=== PATIENT | female | born 1985 | race Caucasian/White ===

== ENCOUNTER 2017-04-15 17:57 | Emergency (ER) | payer OTHER ==
[~2017-04-15] VITALS: Ht 152.4 cm; Wt 73.7 kg
[2017-04-15 18:05] VITALS: Ht 152.4 cm; Wt 73.7 kg
[2017-04-15] MEDS ORDERED: CLON0.5T3 PO (18:54)
[2017-04-15] MEDS ORDERED: TBROPO OPR (18:54)
[2017-04-15] MEDS ORDERED: LAMO25TA PO (18:54)
[2017-04-15] MEDS ORDERED: [UNRECOGNIZED DRUG - CODE] PO (18:54)
[2017-04-15] MEDS ORDERED: DPPI400 INJ (18:54)
--- NOTE | 2017-04-15 19:04 | EMERGENCY ROOM VISIT NOTE ---
History Report prepared by Priscila: Joy Krishnamurthy Under the Supervision of: Dr. Woodrow Tracy M.D. First contact with patient: 18:14 Chief Complaint: NEURO SYMPTOMS Stated Complaint: CANNOT WALK, FALL, TO SEE NEUROLOGIST History of Present Illness The patient is a 31 year old female who presents to the Emergency Room with complaints of persistent neuro symptoms that have been worsening over the past 3 weeks ago. The patient's mother reports that the patient has a history of Cerebral Palsy and Epilepsy. She states that the patient has had an unsteady gait for the past three weeks. The patient's mother states that she took the patient to a neurologist and had a change in her medication. She states that the patient additionally had an EEG three weeks ago. The patient's mother states that several days ago the patient fell and has not been able to ambulate without assistance or without a walker. She states that the patient was evaluated at [facility] Emergency department and only had x-rays of her legs to rule out fractures. The patient's mother states that the patient still cannot stand up on her feet and needs further evaluation. She states that the patient does not see her new neurologist until the beginning of April. Source of History: patient Onset: past three weeks Position: other (global) Quality: other (neuro symptoms) Timing: other (persistent) Note: Associated Symptoms: difficulty walking, unsteady gait Review of Systems See HPI for pertinent positives & negatives. A total of 10 systems reviewed and were otherwise negative. Past Medical & Surgical Medical Problems: (1) Cerebral palsy (2) Epilepsy Family History No pertinent family history stated. Social History Smoking Status: Never Smoker Marital Status: single Occupation Status: unemployed Current/Historical Medications Scheduled Clonazepam (Klonopin), 0.5 MG PO BID Clorazepate Dipotassium (Clorazepate Dipotassium), 0.5 TAB PO BID Lamotrigine (Lamictal), 25 MG PO QAM Medroxyprogesterone Acetate (Depo-Provera), 1 DOSE INJ Q3MO Tobramycin Sulf (Tobrex), 1 APPLN OPR BID Physical Exam Vital Signs Date Time Temp Pulse Resp B/P (MAP) Pulse Ox O2 Delivery O2 Flow Rate FiO2 04/15/17 21:09 112 19 120/69 96 Room Air 04/15/17 18:05 131 18 144/89 97 Room Air Physical Exam GENERAL: Patient is a healthy-appearing well-nourished female HEAD: Normocephalic atraumatic EYES: Ocular movements intact pupils equal and react to light OROPHARYNX mucous membranes are moist no exudates present no erythema or edema present NECK: Supple no nuchal rigidity CHEST: Good equal expansion LUNGS: Clear and equal to auscultation CARDIAC: Normal S1 and S2 ABDOMEN: Soft nontender no guarding BACK: No CVA tenderness EXTREMITIES: No pain upon palpation normal muscle strength in all groups no clubbing cyanosis or edema NEURO: Patient is following commands and answering questions appropriately. Alert and oriented x3 Cranial Nerves 2-12 grossly intact Medical Decision & Procedures ER Provider Diagnostic Interpretation: Radiology results as stated below per my review and radiologist interpretation: CT OF THE HEAD WITHOUT CONTRAST CLINICAL HISTORY: Weakness. Fall. COMPARISON STUDY: No previous studies for comparison. CT DOSE: 655.73 mGy.cm TECHNIQUE: Helical axial images of the head were obtained without IV contrast. Automated exposure control was utilized for the study. FINDINGS: No acute intracranial hemorrhage, midline shift or mass effect is present. Ventricular system is unremarkable. Basilar cisterns are patent. There are no extra-axial collections. Griggs-white differentiation is maintained. There are no findings to suggest acute dural sinus thrombosis or acute territorial infarct. There is mild cerebral and moderate cerebellar atrophy. There may be subtle subcortical white matter hypodensities. There is no calvarial fracture. Visualized portions of the sinuses and mastoid air cells are clear. IMPRESSION: 1. No acute intracranial findings. 2. Mild cerebral and moderate cerebellar atrophy. Suspected subtle white matter hypodensities which are likely chronic. Electronically signed by: Ajay Marie M.D. 04/15/2017 8:02 PM Dictated Date/Time: 04/15/2017 7:56 PM RIGHT TIBIA/FIBULA 2 VIEWS ROUTINE CLINICAL HISTORY: Ambulatory dysfunction. COMPARISON: None FINDINGS: No acute fracture of the right tibia or fibula is identified. There is mild posterior calcaneal spurring. There may be a right knee joint effusion. IMPRESSION: 1. No acute fracture of the right tibia or fibula. 2. Possible right knee joint effusion. Electronically signed by: Ajay Marie M.D. 04/15/2017 8:39 PM Dictated Date/Time: 04/15/2017 8:37 PM LEFT TIBIA/FIBULA 2 VIEWS ROUTINE CLINICAL HISTORY: Ambulatory dysfunction. COMPARISON: None FINDINGS: No acute fracture of the left tibia or fibula is identified. A calcification within the left calf is chronic. Talar dome is intact. There is minimal posterior calcaneal spurring. IMPRESSION: No acute fracture of the left tibia or fibula. Electronically signed by: Ajay Marie M.D. 04/15/2017 8:41 PM Dictated Date/Time: 04/15/2017 8:40 PM PELVIS 1 OR 2 VIEW ROUTINE CLINICAL HISTORY: Ambulatory dysfunction. COMPARISON STUDY: No previous studies for comparison. FINDINGS: The sacroiliac joints and symphysis pubis are intact. Alignment of the hips is anatomic. No acute fracture within the pelvis or hips is identified. IMPRESSION: No acute fracture within the pelvis or hips. Electronically signed by: Ajay Marie M.D. 04/15/2017 8:36 PM Dictated Date/Time: 04/15/2017 8:35 PM ADDENDUM Addendum: Note is made of a suspected moderate size right knee joint effusion, a nonspecific finding. Electronically signed by: Ajay Marie M.D. 04/15/2017 8:43 PM Dictated Date/Time: 04/15/2017 8:42 PM ORIGINAL REPORT RIGHT FEMUR 2 VIEWS ROUTINE CLINICAL HISTORY: Ambulatory dysfunction. COMPARISON: None FINDINGS: Alignment of the right hip and knee is anatomic. No acute fracture of the right femur is identified. No osseous lesion is identified. IMPRESSION: No acute fracture of the right femur. Electronically signed by: Ajay Marie M.D. 04/15/2017 8:37 PM Dictated Date/Time: 04/15/2017 8:36 PM LEFT FEMUR 2 VIEWS ROUTINE CLINICAL HISTORY: Ambulatory dysfunction. COMPARISON: None FINDINGS: There is no acute fracture of the left femur. A tiny ossific/calcific density which projects superior to the left femoral neck is likely chronic. Alignment of the left hip and left knee is anatomic. IMPRESSION: No acute fracture of the left femur. Electronically signed by: Ajay Marie M.D. 04/15/2017 8:40 PM Dictated Date/Time: 04/15/2017 8:39 PM Laboratory Results 04/15/17 19:23 Red Blood Count 5.35, Mean Corpuscular Volume 87.5, Mean Corpuscular Hemoglobin 29.7, Mean Corpuscular Hemoglobin Concent 34.0, Mean Platelet Volume 11.0, Neutrophils (%) (Auto) 52.3, Lymphocytes (%) (Auto) 36.4, Monocytes (%) (Auto) 9.6, Eosinophils (%) (Auto) 0.9, Basophils (%) (Auto) 0.5, Neutrophils # (Auto) 3.85, Lymphocytes # (Auto) 2.69, Monocytes # (Auto) 0.71, Eosinophils # (Auto) 0.07, Basophils # (Auto) 0.04 04/15/17 19:23 Test 04/15/17 19:23 White Blood Count 7.38 K/uL (4.8-10.8) Red Blood Count 5.35 M/uL (4.2-5.4) Hemoglobin 15.9 g/dL (12.0-16.0) Hematocrit 46.8 % (37-47) Mean Corpuscular Volume 87.5 fL (80-100) Mean Corpuscular Hemoglobin 29.7 pg (25-34) Mean Corpuscular Hemoglobin Concent 34.0 g/dl (32-36) Platelet Count 317 K/uL (130-400) Mean Platelet Volume 11.0 fL (7.4-10.4) Neutrophils (%) (Auto) 52.3 % Lymphocytes (%) (Auto) 36.4 % Monocytes (%) (Auto) 9.6 % Eosinophils (%) (Auto) 0.9 % Basophils (%) (Auto) 0.5 % Neutrophils # (Auto) 3.85 K/uL (1.4-6.5) Lymphocytes # (Auto) 2.69 K/uL (1.2-3.4) Monocytes # (Auto) 0.71 K/uL (0.11-0.59) Eosinophils # (Auto) 0.07 K/uL (0-0.5) Basophils # (Auto) 0.04 K/uL (0-0.2) RDW Standard Deviation 40.9 fL (36.4-46.3) RDW Coefficient of Variation 12.9 % (11.5-14.5) Immature Granulocyte % (Auto) 0.3 % Immature Granulocyte # (Auto) 0.02 K/uL (0.00-0.02) Anion Gap 10.0 mmol/L (3-11) Est Creatinine Clear Calc Drug Dose 95.3 ml/min Estimated GFR () 120.3 Estimated GFR (Non- 103.8 BUN/Creatinine Ratio 14.2 (10-20) Calcium Level 9.6 mg/dl (8.5-10.1) Beta-Hydroxybutyric Acid 1.06 mg/dL (0.2-2.81) Labs reviewed by ED physician. ED Course 1814: Past medical records reviewed. The patient was evaluated in room C1B. A complete history and physical examination was performed by Dr. Whaley, Fountain Manager. 1849: Past medical records reviewed. The patient was evaluated in room C1B. A complete history and physical examination was performed. 2129: The patient was reevaluated by Dr. Whaley and the patient is resting comfortably. He discussed the exam findings with the patient and her mother and he discussed the treatment plan. They verbalized complete understanding and agreement. The patient is ready to go home. Medical Decision Differential diagnosis: Etiologies such as metabolic, infection, hypo/hyperglycemia, electrolyte abnormalities, cardiac sources, intracerebral event, toxicologic, neurologic, as well as others were entertained. Medication Reconciliation: I attest that I have personally reviewed the patient' s current medication list Blood Pressure Screening: Patient was found to have an elevated blood pressure and was referred to their primary care doctor for recheck and further treatment Resident Physician Supervision Note: I interviewed and examined the patient. Discussed with Dr. Whaley and agree with findings and plan as documented in the note. Documented By: Woodrow Tracy Impression Primary Impression: Ambulatory dysfunction Additional Impression: Knee effusion, right Scribe Attestation The scribe's documentation has been prepared under my direction and personally reviewed by me in its entirety. I confirm that the note above accurately reflects all work, treatment, procedures, and medical decision making performed by me. Departure Information Dispostion Home / Self-Care Referrals Yvan Vee D.O. (PCP) Forms HOME CARE DOCUMENTATION FORM, IMPORTANT VISIT INFORMATION Patient Instructions My [facility] [place] [facility] microcaps Additional Instructions Please Follow up with Orthopedics within 1 week Please Follow up with PCP krupa 1-2 wks Please take Ibuprofen as needed for pain Problem Qualifiers
--- NOTE | 2017-04-15 19:08 | EMERGENCY ROOM VISIT NOTE ---
History First contact with patient: 18:14 Chief Complaint: FALL Stated Complaint: CANNOT WALK, FALL, TO SEE NEUROLOGIST History of Present Illness The patient is a 31 year old female with hx of epilepsy , cerebral palsy with intellectual disability, who presents to the Emergency Room with complaints of decline in ambulatory function. Per guardian patient was previously able to walk without assistance,but over the last 6 wks, patient has shown progressive instability while walking. Patient had a notable fall after which she required a walker to ambulate. Referral was made to a Neurologist (outside facility) who attributed her fall to seizure activity and subsequently added Lamictal to her anticonvulsant regimen. Patient had been on Clonazepam and Chlorazepate. 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 Patient was informed on d/c to seek neurologist. At guardian's request PCP made a [place] [facility] Review of Systems unable to get reliable ROS due to patient's baseline cognitive state Past Medical/Surgical History Medical Problems: (1) Cerebral palsy (2) Epilepsy Social History Smoking Status: Never Smoker Alcohol Use: none Drug Use: none Marital Status: single Housing Status: lives with family Occupation Status: unemployed Current/Historical Medications Scheduled Clonazepam (Klonopin), 0.5 MG PO BID Clorazepate Dipotassium (Clorazepate Dipotassium), 0.5 TAB PO BID Lamotrigine (Lamictal), 25 MG PO QAM Medroxyprogesterone Acetate (Depo-Provera), 1 DOSE INJ Q3MO Tobramycin Sulf (Tobrex), 1 APPLN OPR BID Physical Exam Vital Signs Date Time Temp Pulse Resp B/P (MAP) Pulse Ox O2 Delivery O2 Flow Rate FiO2 04/15/17 21:09 112 19 120/69 96 Room Air 04/15/17 18:05 131 18 144/89 97 Room Air Physical Exam GENERAL: cerebral palsy, intellectual disability no distress, EYE EXAM: Right Eye: s/p corneal transplant OROPHARYNX: no exudate, no erythema, lips, buccal mucosa, and tongue normal and mucous membranes are moist NECK: supple, no nuchal rigidity, no adenopathy, non-tender LUNGS: Clear to auscultation. Normal chest wall mechanics HEART: no murmurs, S1 normal and S2 normal ABDOMEN: abdomen soft, non-tender, normo-active bowel sounds, no masses, no rebound or guarding. UPPER EXTREMITIES: upper extremities are grossly normal. LOWER EXTREMITIES: No pitting edema. Knees: FROM in all directions, no bony deformity, superficial abrasions arpan patellae, no bleeding no overt edema, no erythema or warmth, no tenderness at joint line, no pain on flexion/extension. No joint laxity, neg. ant. drawer/ post drawer test NEURO EXAM: cerebral palsy, no evidence of hypertonia Medical Decision & Procedures Laboratory Results 04/15/17 19:23 Red Blood Count 5.35, Mean Corpuscular Volume 87.5, Mean Corpuscular Hemoglobin 29.7, Mean Corpuscular Hemoglobin Concent 34.0, Mean Platelet Volume 11.0, Neutrophils (%) (Auto) 52.3, Lymphocytes (%) (Auto) 36.4, Monocytes (%) (Auto) 9.6, Eosinophils (%) (Auto) 0.9, Basophils (%) (Auto) 0.5, Neutrophils # (Auto) 3.85, Lymphocytes # (Auto) 2.69, Monocytes # (Auto) 0.71, Eosinophils # (Auto) 0.07, Basophils # (Auto) 0.04 04/15/17 19:23 Test 04/15/17 19:23 White Blood Count 7.38 K/uL (4.8-10.8) Red Blood Count 5.35 M/uL (4.2-5.4) Hemoglobin 15.9 g/dL (12.0-16.0) Hematocrit 46.8 % (37-47) Mean Corpuscular Volume 87.5 fL (80-100) Mean Corpuscular Hemoglobin 29.7 pg (25-34) Mean Corpuscular Hemoglobin Concent 34.0 g/dl (32-36) Platelet Count 317 K/uL (130-400) Mean Platelet Volume 11.0 fL (7.4-10.4) Neutrophils (%) (Auto) 52.3 % Lymphocytes (%) (Auto) 36.4 % Monocytes (%) (Auto) 9.6 % Eosinophils (%) (Auto) 0.9 % Basophils (%) (Auto) 0.5 % Neutrophils # (Auto) 3.85 K/uL (1.4-6.5) Lymphocytes # (Auto) 2.69 K/uL (1.2-3.4) Monocytes # (Auto) 0.71 K/uL (0.11-0.59) Eosinophils # (Auto) 0.07 K/uL (0-0.5) Basophils # (Auto) 0.04 K/uL (0-0.2) RDW Standard Deviation 40.9 fL (36.4-46.3) RDW Coefficient of Variation 12.9 % (11.5-14.5) Immature Granulocyte % (Auto) 0.3 % Immature Granulocyte # (Auto) 0.02 K/uL (0.00-0.02) Anion Gap 10.0 mmol/L (3-11) Est Creatinine Clear Calc Drug Dose 95.3 ml/min Estimated GFR () 120.3 Estimated GFR (Non- 103.8 BUN/Creatinine Ratio 14.2 (10-20) Calcium Level 9.6 mg/dl (8.5-10.1) Beta-Hydroxybutyric Acid 1.06 mg/dL (0.2-2.81) Medical Decision 31 yo F with hx of cerebral palsy, intellectual disability presenting with progressive ambulatory dysfunction. CT negative for acute intracranial findings , XR of Rt Knee consistent with Effusion. While exam unremarkable for pain, it may be a contributor to her difficulty with ambulation CBC unremarkable BMP; Glucose: 315, Na 137, corrected Na [address] Head: 1. No acute intracranial findings. 2. Mild cerebral and moderate cerebellar atrophy. Suspected subtle white matter hypodensities which are likely chronic. XR Pelvis: unremarkable XR L, R Tib/Fib: unremarkable XR L, R Femur: Rt Knee effusion Patient was comfortable and pain free on evaluation , however she still requires a walker to ambulate. She had FROM of Right knee without notable pain. The thought was that the effusion was her source of ambulatory dysfunction. It was determined patient could be safely discharged home with followup to Orthopedics for Right Knee effusion and PCP for Hyperglycemia. ROMA bandage placed on knee prior to discharge. For Hyperglycemia, patient has had no previous diagnosis or treatment for Diabetes. Result was discussed with patient and A1C was ordered with the plan of PCP f/u following discharge Impression Primary Impression: Ambulatory dysfunction Additional Impression: Knee effusion, right Departure Information Dispostion Home / Self-Care Condition GOOD Referrals Yvan Vee D.O. (PCP) Patient Instructions My [facility] [address] Additional Instructions Please Follow up with Orthopedics within 1 week Please Follow up with PCP krupa 1-2 wks Problem Qualifiers
[2017-04-15 19:47] LABS: BASO % 0.5 %; BASO ABS # 0.04 K/uL (0-0.2); COMPLETE YES; EOS % 0.9 %; HEMATOCRIT 46.8 % (37-47); IG% 0.3 %; LYMPH % 36.4 %; LYMPH ABS # 2.69 K/uL (1.2-3.4); MEAN CELL VOLUME 87.5 fL (80-100); MEAN CORPUSCULAR HEMOGLOBIN 29.7 pg (25-34); MONO % 9.6 %; NEUT % 52.3 %; PLATELET COUNT 317 K/uL (130-400); RED BLOOD COUNT 5.35 M/uL (4.2-5.4); WHITE BLOOD COUNT 7.38 K/uL (4.8-10.8)
--- NOTE | 2017-04-15 20:03 | DIAGNOSTIC IMAGING REPORT ---
CT OF THE HEAD WITHOUT CONTRAST CLINICAL HISTORY: Weakness. Fall. COMPARISON STUDY: No previous studies for comparison. CT DOSE: 655.73 mGy.cm TECHNIQUE: Helical axial images of the head were obtained without IV contrast. Automated exposure control was utilized for the study. FINDINGS: No acute intracranial hemorrhage, midline shift or mass effect is present. Ventricular system is unremarkable. Basilar cisterns are patent. There are no extra-axial collections. Griggs-white differentiation is maintained. There are no findings to suggest acute dural sinus thrombosis or acute territorial infarct. There is mild cerebral and moderate cerebellar atrophy. There may be subtle subcortical white matter hypodensities. There is no calvarial fracture. Visualized portions of the sinuses and mastoid air cells are clear. IMPRESSION: 1. No acute intracranial findings. 2. Mild cerebral and moderate cerebellar atrophy. Suspected subtle white matter hypodensities which are likely chronic. Electronically signed by: Ajay Marie M.D. 04/15/2017 8:02 PM Dictated Date/Time: 04/15/2017 7:56 PM
[2017-04-15 20:06] LABS: BUN/CREATININE RATIO 14.2 (10-20); CALCIUM 9.6 mg/dl (8.5-10.1); CREATININE 0.76 mg/dl (0.60-1.20); POTASSIUM 3.7 mmol/L (3.5-5.1)
[2017-04-15 20:17] LABS: BETA-HYDROXYBUTYRATE 1.06 mg/dL (0.2-2.81)
--- NOTE | 2017-04-15 20:37 | DIAGNOSTIC IMAGING REPORT ---
PELVIS 1 OR 2 VIEW ROUTINE CLINICAL HISTORY: Ambulatory dysfunction. COMPARISON STUDY: No previous studies for comparison. FINDINGS: The sacroiliac joints and symphysis pubis are intact. Alignment of the hips is anatomic. No acute fracture within the pelvis or hips is identified. IMPRESSION: No acute fracture within the pelvis or hips. Electronically signed by: Ajay Marie M.D. 04/15/2017 8:36 PM Dictated Date/Time: 04/15/2017 8:35 PM
--- NOTE | 2017-04-15 20:38 | DIAGNOSTIC IMAGING REPORT ---
ADDENDUM Addendum: Note is made of a suspected moderate size right knee joint effusion, a nonspecific finding. Electronically signed by: Ajay Marie M.D. 04/15/2017 8:43 PM Dictated Date/Time: 04/15/2017 8:42 PM ORIGINAL REPORT RIGHT FEMUR 2 VIEWS ROUTINE CLINICAL HISTORY: Ambulatory dysfunction. COMPARISON: None FINDINGS: Alignment of the right hip and knee is anatomic. No acute fracture of the right femur is identified. No osseous lesion is identified. IMPRESSION: No acute fracture of the right femur. Electronically signed by: Ajay Marie M.D. 04/15/2017 8:37 PM Dictated Date/Time: 04/15/2017 8:36 PM
--- NOTE | 2017-04-15 20:41 | DIAGNOSTIC IMAGING REPORT ---
RIGHT TIBIA/FIBULA 2 VIEWS ROUTINE CLINICAL HISTORY: Ambulatory dysfunction. COMPARISON: None FINDINGS: No acute fracture of the right tibia or fibula is identified. There is mild posterior calcaneal spurring. There may be a right knee joint effusion. IMPRESSION: 1. No acute fracture of the right tibia or fibula. 2. Possible right knee joint effusion. Electronically signed by: Ajay Marie M.D. 04/15/2017 8:39 PM Dictated Date/Time: 04/15/2017 8:37 PM
--- NOTE | 2017-04-15 20:41 | DIAGNOSTIC IMAGING REPORT ---
LEFT FEMUR 2 VIEWS ROUTINE CLINICAL HISTORY: Ambulatory dysfunction. COMPARISON: None FINDINGS: There is no acute fracture of the left femur. A tiny ossific/calcific density which projects superior to the left femoral neck is likely chronic. Alignment of the left hip and left knee is anatomic. IMPRESSION: No acute fracture of the left femur. Electronically signed by: Ajay Marie M.D. 04/15/2017 8:40 PM Dictated Date/Time: 04/15/2017 8:39 PM
--- NOTE | 2017-04-15 20:42 | DIAGNOSTIC IMAGING REPORT ---
LEFT TIBIA/FIBULA 2 VIEWS ROUTINE CLINICAL HISTORY: Ambulatory dysfunction. COMPARISON: None FINDINGS: No acute fracture of the left tibia or fibula is identified. A calcification within the left calf is chronic. Talar dome is intact. There is minimal posterior calcaneal spurring. IMPRESSION: No acute fracture of the left tibia or fibula. Electronically signed by: Ajay Marie M.D. 04/15/2017 8:41 PM Dictated Date/Time: 04/15/2017 8:40 PM
[2017-04-15 21:09] VITALS: BP 120/69; PULSE 112; O2SAT 96
[2017-04-16 06:45] LABS: ESTIMATED AVERAGE GLUCOSE 249 mg/dl; HA1C FLAG Normal (Normal)
== END 2017-04-15 21:35 | disposition home or self-care (01) ==
LOC: C.EDB 17:58 → C.EDC 21:35
DX: R26.89 Other abnormalities of gait and mobility (principal); M25.461 Effusion, right knee; G80.9 Cerebral palsy, unspecified; G40.909 Epilepsy, unspecified, not intractable, without status epilepticus; Z79.899 Other long term (current) drug therapy